=== PATIENT | female | born 1990 | race African-American/Black ===

== ENCOUNTER → 2018-06-23 | Emergency (ER) | payer SELFPAY ==
[~2018-06-23] VITALS: Ht 154.9 cm; Wt 73.5 kg
--- OUTSIDE RECORDS SUMMARY | 2018-06-28 13:05 | XMS REPORT | Summary of Care ---
Author Author [facility] Organization [facility] Address Unknown Phone Unavailable Encounter CHARANJIT Chavez(GISSELLE) [id number] Date(s): 11/28/15 - 11/28/15 [facility] [address] [place] [address]- Discharge Diagnosis: Dysuria Discharge Disposition: Home Attending Physician: Heriberto Barahona MD Vital Signs Most recent to 1 2 oldest [Reference Range]: Height 154.94 cm (11/28/15 8:09 PM) Temperature Oral 98.2 DegF [96.4-99.1 DegF] (11/28/15 8:09 PM) Blood Pressure 140/74 mmHg 130/59 mmHg [90-140/60-90 mmHg] (11/28/15 10:00 PM) (11/28/15 8:09 PM) Respiratory Rate 18 BRMIN 20 BRMIN [14-20 BRMIN] (11/28/15 10:00 PM) (11/28/15 8:09 PM) Peripheral Pulse 77 bpm 73 bpm Rate [60-100 bpm] (11/28/15 10:00 PM) (11/28/15 8:09 PM) Weight 79.545 kg (11/28/15 8:09 PM) Body Mass Index 33.13 m2 (11/28/15 8:09 PM) Problem List No data available for this section Allergies, Adverse Reactions, Alerts Substance Reaction Severity Status NKDA Active Medications Bactrim DS 800 mg- 160 mg oral tablet 1 tab, PO, BID, for UTI, X 3 day, # 6 tab, 0 Refill(s) Start Date: 11/28/15 Stop Date: 12/01/15 Status: Ordered Results URINE CHEM Most recent to 1 oldest [Reference Range]: U Preg [Negative] Negative (11/28/15 8:37 PM) URINE AND STOOL Most recent to 1 oldest [Reference Range]: UA Turbidity [Clear] Slight Cloudy (11/28/15 8:37 PM) UA Color [Yellow] Yellow *NA* (11/28/15 8:37 PM) UA pH [5.0-8.0] 6.0 (11/28/15 8:37 PM) UA Spec Grav 1.025 [<=1.030] (11/28/15 8:37 PM) UA Glucose [Negative Negative mg/dL mg/dL] (11/28/15 8:37 PM) UA Blood [Negative] Negative (11/28/15 8:37 PM) UA Ketones [Negative Negative mg/dL mg/dL] *NA* (11/28/15 8:37 PM) UA Protein [Negative Negative mg/dL mg/dL] (11/28/15 8:37 PM) UA Urobilinogen 0.2 EU/dL [0.1-1.0 EU/dL] (11/28/15 8:37 PM) UA Bili [Negative] Negative *NA* (11/28/15 8:37 PM) UA Leuk Est Negative [Negative] (11/28/15 8:37 PM) UA Nitrite Negative [Negative] (11/28/15 8:37 PM) UA WBC [None Seen] None Seen (11/28/15 8:37 PM) UA RBC [0-2 /HPF] 0-2 /HPF (11/28/15 8:37 PM) UA Bacteria [None Moderate /HPF Seen /HPF] (11/28/15 8:37 PM) UA Sq Epi [Few /LPF] Few /LPF (11/28/15 8:37 PM) Micro? Performed (11/28/15 8:37 PM) Immunizations No data available for this section Procedures Procedure Date Related Diagnosis Body Site Appendectomy section Social History Social History Type Response Smoking Status Never smoker; Ready to change: No; Concerns about tobacco use in household: No; Exposure to Tobacco Smoke None; Cigarette Smoking Last 365 Days No; Reg Smoking Cessation Counseling No Assessment and Plan No data available for this section
--- OUTSIDE RECORDS SUMMARY | 2018-06-28 13:05 | XMS REPORT | Summary of Care ---
Author Author [facility] Organization [facility] Address Unknown Phone Unavailable Encounter CHARANJIT Chavez(GISSELLE) [id number] Date(s): 06/18/15 - 06/18/15 [facility] [address] [place] [address]- [phone] Discharge Diagnosis: Exposure to STD Discharge Diagnosis: Trichomonas Discharge Disposition: Home Attending Physician: Ian Ferreira MD Vital Signs Most recent to 1 2 oldest [Reference Range]: Height 154.94 cm (06/18/15 11:55 AM) Most recent to 1 2 oldest [Reference Range]: Temperature Oral 98.2 DegF 98.5 DegF [96.4-99.1 DegF] (06/18/15 1:00 PM) (06/18/15 11:55 AM) Most recent to 1 2 oldest [Reference Range]: Blood Pressure 132/76 mmHg 128/70 mmHg [90-140/60-90 mmHg] (06/18/15 1:00 PM) (06/18/15 11:55 AM) Most recent to 1 2 oldest [Reference Range]: Respiratory Rate 18 BRMIN 18 BRMIN [14-20 BRMIN] (06/18/15 1:00 PM) (06/18/15 11:55 AM) Most recent to 1 2 oldest [Reference Range]: Peripheral Pulse 60 bpm 68 bpm Rate [60-100 bpm] (06/18/15 1:00 PM) (06/18/15 11:55 AM) Most recent to 1 2 oldest [Reference Range]: Weight 79.545 kg (06/18/15 11:55 AM) Most recent to 1 2 oldest [Reference Range]: Body Mass Index 33.13 m2 (06/18/15 11:55 AM) Problem List No data available for this section Allergies, Adverse Reactions, Alerts Substance Reaction Severity Status NKDA Active Medications Flagyl 2 gm, Route: PO, ONCE, Dosing Weight 79.545, kg, Start date: 06/18/15 12:54:00, Stop date: 06/18/15 12:54:00 Start Date: 06/18/15 Stop Date: 06/18/15 Status: Completed Rocephin 250 mg, Route: IM, Drug form: PDR/INJ, ONCE, Dosing Weight 79.545, kg, Priority: STAT, Start date: 06/18/15 12:54:00, Stop date: 06/18/15 12:54:00 Start Date: 06/18/15 Stop Date: 06/18/15 Status: Completed Zithromax 1,000 mg, Route: PO, Drug form: PCKT, ONCE, Dosing Weight 79.545, kg, Start date : 06/18/15 12:55:00, Stop date: 06/18/15 12:55:00 Start Date: 06/18/15 Stop Date: 06/18/15 Status: Discontinued Zithromax 250 mg oral tablet 1,000 mg, Route: PO, ONCE, Dosing Weight 79.545, kg, Start date: 06/18/15 13:20: 00, Stop date: 06/18/15 13:20:00 Start Date: 06/18/15 Stop Date: 06/18/15 Status: Completed Results URINE CHEM Most recent to 1 oldest [Reference Range]: U Preg [Negative] Negative (06/18/15 12:36 PM) URINE AND STOOL Most recent to 1 oldest [Reference Range]: UA Turbidity [Clear] Clear (06/18/15 12:36 PM) UA Color [Yellow] Yellow *NA* (06/18/15 12:36 PM) UA pH [5.0-8.0] 6.0 (06/18/15 12:36 PM) UA Spec Grav 1.015 [<=1.030] (06/18/15 12:36 PM) UA Glucose [Negative Negative mg/dL mg/dL] (06/18/15 12:36 PM) UA Blood [Negative] Negative (06/18/15 12:36 PM) UA Ketones [Negative Negative mg/dL mg/dL] *NA* (06/18/15 12:36 PM) UA Protein [Negative Negative mg/dL mg/dL] (06/18/15 12:36 PM) UA Urobilinogen 0.2 EU/dL [0.1-1.0 EU/dL] (06/18/15 12:36 PM) UA Bili [Negative] Negative *NA* (06/18/15 12:36 PM) UA Leuk Est Negative [Negative] (06/18/15 12:36 PM) UA Nitrite Negative [Negative] (06/18/15 12:36 PM) UA WBC [None Seen 0-2 /HPF /HPF] (06/18/15 12:36 PM) UA Bacteria [None Occasional /HPF Seen /HPF] (06/18/15 12:36 PM) UA Sq Epi [Few /LPF] Few /LPF (06/18/15 12:36 PM) UA Trichomonas [None Few /HPF Seen /HPF] *ABN* (06/18/15 12:36 PM) Immunizations No data available for this [...]
--- OUTSIDE RECORDS SUMMARY | 2018-06-28 13:05 | XMS REPORT | Summary of Care ---
Author Author [facility] Organization [facility] Address Unknown Phone Unavailable Encounter CHARANJIT Chavez(GISSELLE) [id number] Date(s): 02/18/17 - 02/18/17 [facility] [address] [employer] provided by [facility] [employer] [facility] [place] [address]- Discharge Diagnosis: Bacterial vaginitis Discharge Diagnosis: Nausea and vomiting during prior to 22 weeks gest ation Discharge Disposition: Home or Self Care Attending Physician: Serene Simons MD Vital Signs 1 2 3 Most recent to oldest [Reference Range]: 154.94 cm (02/18/17 12:01 PM) Height 98 DegF (02/18/17 5:39 PM) 98.3 DegF (02/18/17 12:01 PM) Temperature Oral [96.4-99.1 DegF] 112/59 mmHg (02/18/17 5:39 PM) 134/64 mmHg (02/18/17 3:33 PM) 119/70 mmHg (02/18/17 1:07 PM) Blood Pressure [90-140/60-90 mmHg] 18 BRMIN (02/18/17 5:39 PM) 18 BRMIN (02/18/17 3:33 PM) 18 BRMIN (02/18/17 1:07 PM) Respiratory Rate [14-20 BRMIN] 96 bpm (02/18/17 12:01 PM) Peripheral Pulse Rate [60-100 bpm] 72.727 kg (02/18/17 12:01 PM) Weight 30.29 m2 (02/18/17 12:01 PM) Body Mass Index Problem List No data available for this section Allergies, Adverse Reactions, Alerts Substance Reaction Severity Status NKDA Active Medications clindamycin 100 mg vaginal suppository 100 mg=1 supp, VAG, Bedtime, X 3 day, # 3 ea, 0 Refill(s) Start Date: 02/18/17 Stop Date: 02/21/17 Status: Ordered Sodium Chloride 0.9% (Bolus) IV 1,000 mL, Infuse Over: 1 hr, Route: IV, ONCE, Priority: STAT, Dosing Weight 72.7 27 kg, Start date: 02/18/17 15:20:00 CDT, Duration: 1 doses or times, Stop date: 02/18/17 15:20:00 CDT Start Date: 02/18/17 Stop Date: 02/18/17 Status: Completed Tylenol 500 mg, 1 tab, Route: PO, Drug form: TAB, ONCE, Dosing Weight 72.727, kg, Start date: 02/18/17 13:16:00 CDT, Stop date: 02/18/17 13:16:00 CDT Notes: Max acetaminophen 4000 mg/day (4 gm/day). (Same as: Tylenol Extra Streng th) Start Date: 02/18/17 Stop Date: 02/18/17 Status: Completed Zofran ODT 4 mg, 1 tab, Route: PO, Drug form: TABDIS, ONCE, Dosing Weight 72.727, kg, Prior ity: STAT, Start date: 02/18/17 13:16:00 CDT, Stop date: 02/18/17 13:16:00 CDT Notes: (Same as: Zofran ODT) Start Date: 02/18/17 Stop Date: 02/18/17 Status: Completed Zofran ODT 4 mg oral tablet, disintegrating 4 mg=1 tab, PO, Q8H, PRN Nausea & Vomiting, Dissolve tab under tongue, X 4 day, # 12 tab, 0 Refill(s) Start Date: 02/18/17 Stop Date: 02/22/17 Status: Ordered Results ELECTROLYTES Most recent to 1 oldest [Reference Range]: Sodium Lvl [135-145 135 mEq/L mEq/L] (02/18/17 3:15 PM) Potassium Lvl 3.7 mEq/L [3.5-5.1 mEq/L] (02/18/17 3:15 PM) Chloride Lvl [95-109 103 mEq/L mEq/L] (02/18/17 3:15 PM) CO2 [24-32 mEq/L] 19 mEq/L *LOW* (02/18/17 3:15 PM) AGAP [10.0-20.0 16.7 mEq/L mEq/L] (02/18/17 3:15 PM) CHEM PANEL Most recent to 1 oldest [Reference Range]: Creatinine Lvl 0.71 mg/dL [0.50-1.40 mg/dL] (02/18/17 3:15 PM) eGFR 138 mL/min/1.73m2 1 *NA* (02/18/17 3:15 PM) BUN [7-22 mg/dL] 5 mg/dL *LOW* (02/18/17 3:15 PM) Glucose Lvl [70-99 86 mg/dL mg/dL] (02/18/17 3:15 PM) Calcium Lvl 9.1 mg/dL [8.5-10.5 mg/dL] (02/18/17 3:15 PM) 1Result Comment: The eGFR is calculated using the CKD-EPI formula. In most young, healthy individuals the eGFR will be >90 mL/min/1.73m2. The eGFR declines with age. An eGFR of 60-89 may be normal in some populations, particularly the elderly, for whom the CKD-EPI formula has not been extensively validated. Use of the eGFR is not recommended in the following populations: Individuals with unstable creatinine concentrations, including patients and those with serious co-morbid conditions. Patients with extremes in muscle mass or diet. The data above are obtained from the National Kidney Disease Education Program ( NKDEP) which additionally recommends that when the eGFR is used in patients with extremes of body mass index for purposes of drug dosing, the eGFR should be mul tiplied by the estimated BMI. ENDOCRINOLOGY Most recent to 1 oldest [Reference Range]: S Preg [Negative] Positive *NA* (02/18/17 3:15 PM) URINE CHEM Most recent to 1 oldest [Reference Range]: U Preg [Negative] Positive *ABN* (02/18/17 1:25 PM) URINE AND STOOL Most recent to 1 oldest [Reference Range]: UA Turbidity [Clear] Slight Cloudy (02/18/17 1:25 PM) UA Color [Yellow] Yellow *NA* (02/18/17 1:25 PM) UA pH [5.0-8.0] 6.0 (02/18/17 1:25 PM) UA Spec Grav 1.033 [<=1.030] *NA* (02/18/17 1:25 PM) UA Glucose Negative [Negative] (02/18/17 1:25 PM) UA Blood [Negative] Negative (02/18/17 1:25 PM) UA Ketones [Negative >=80 mg/dL mg/dL] *ABN* (02/18/17 1:25 PM) UA Protein [Negative 30 mg/dL mg/dL] *ABN* (02/18/17 1:25 PM) UA Urobilinogen 0.2 EU/dL [0.1-1.0 EU/dL] (02/18/17 1:25 PM) UA Bili [Negative] Small *ABN* (02/18/17 1:25 PM) UA Leuk Est Negative [Negative] (02/18/17 1:25 PM) UA Nitrite Negative [Negative] (02/18/17 1:25 PM) UA WBC [None Seen 0-2 /HPF /HPF] (02/18/17 1:25 PM) UA RBC [0-2] None Seen (02/18/17 1:25 PM) UA Bacteria [None Few /HPF Seen /HPF] (02/18/17 1:25 PM) UA Sq Epi [Few /LPF] Many /LPF *ABN* (02/18/17 1:25 PM) Micro? Performed (02/18/17 1:25 PM) HEMATOLOGY Most recent to 1 oldest [Reference Range]: WBC [3.7-10.4 K/CMM] 12.3 K/CMM *HI* (02/18/17 3:15 PM) RBC [4.20-5.40 5.01 M/CMM M/CMM] (02/18/17 3:15 PM) Hgb [12.0-16.0 g/dL] 13.9 g/dL (02/18/17 3:15 PM) Hct [36.0-48.0 %] 42.5 % (02/18/17 3:15 PM) MCV [80.0-98.0 fL] 84.8 fL (02/18/17 3:15 PM) MCH [27.0-31.0 pg] 27.8 pg (02/18/17 3:15 PM) MCHC [32.0-36.0 32.8 g/dL g/dL] (02/18/17 3:15 PM) RDW [11.5-14.5 %] 12.9 % (02/18/17 3:15 PM) Platelet [133-450 131 K/CMM K/CMM] *LOW* (02/18/17 3:15 PM) MPV [7.4-10.4 fL] 9.9 fL (02/18/17 3:15 PM) Segs [45.0-75.0 %] 76.3 % *HI* (02/18/17 3:15 PM) Lymphocytes 17.2 % [20.0-40.0 %] *LOW* (02/18/17 3:15 PM) Monocytes [2.0-12.0 5.9 % %] (02/18/17 3:15 PM) Eosinophils [0.0-4.0 0.2 % %] (02/18/17 3:15 PM) Basophils [0.0-1.0 0.4 % %] (02/18/17 3:15 PM) Segs-Bands # 9.4 K/CMM [1.5-8.1 K/CMM] *HI* (02/18/17 3:15 PM) Lymphocytes # 2.1 K/CMM [1.0-5.5 K/CMM] (02/18/17 3:15 PM) Monocytes # [0.0-0.8 0.7 K/CMM K/CMM] (02/18/17 3:15 PM) Immunizations No data available for this section Procedures Procedure Date Related Diagnosis Body Site Appendectomy section Social History Social History Type Response Smoking Status Never smoker; Type: Cigarettes; Previous treatment: None; Ready to change: No; Concerns about tobacco use in household: No; Exposure to Tobacco Smoke None; Cigarette Smoking Last 365 Days No; Reg Smoking Cessation Counseling No Assessment and Plan No data available for this section
--- OUTSIDE RECORDS SUMMARY | 2018-06-28 13:05 | XMS REPORT | Summary of Care ---
Author Author [facility] Organization [facility] Address Unknown Phone Unavailable Encounter HQ Scott(FIN) [id number] Date(s): 12/12/17 - 12/13/17 [facility] [address] [place] [address]- [phone] Encounter Diagnosis Acute gastritis (Discharge Diagnosis) - 12/13/17 Acute gastritis without bleeding (Final) - 12/20/17 Discharge Disposition: Home or Self Care Attending Physician: Sammie Espino MD Vital Signs Most recent to 1 2 oldest [Reference Range]: Temperature Oral 98.0 DegF 97.9 DegF [96.4-99.1 DegF] (12/13/17 1:31 AM) (12/12/17 10:13 PM) Blood Pressure 124/80 mmHg 122/81 mmHg [90-140/60-90 mmHg] (12/13/17 1:31 AM) (12/12/17 10:13 PM) Respiratory Rate 18 BRMIN 18 BRMIN [14-20 BRMIN] (12/13/17 1:31 AM) (12/12/17 10:13 PM) Peripheral Pulse 62 bpm 66 bpm Rate [60-100 bpm] (12/13/17 1:31 AM) (12/12/17 10:13 PM) Weight 71.875 kg (12/12/17 10:13 PM) Problem List No data available for this section Allergies, Adverse Reactions, Alerts Substance Reaction Severity Status NKDA Active Medications Carafate 1 g oral tablet 1 gm=1 tab, PO, QID-Before Meals, # 40 tab, 0 Refill(s) Start Date: 12/13/17 Status: Ordered GI cocktail 30 mL, Route: PO, Drug Form: SUSP, Dosing Weight 71.875, kg, ONCE, STAT, Start d ate: 12/12/17 22:17:00 CDT, Stop date: 12/12/17 22:17:00 CDT Notes: G.I. Cocktail=antacid with simethicone 22.5 mL - lidocaine viscous 7.5 mL Start Date: 12/12/17 Stop Date: 12/12/17 Status: Completed ketOROLAC 30 mg, 1 mL, Route: IVP, Drug form: INJ, ONCE, Dosing Weight 71.875, kg, Priorit y: STAT, Start date: 12/13/17 0:28:00 CDT, Stop date: 12/13/17 0:28:00 CDT Notes: (Same as:Toradol) IV bolus must be given >15 seconds. Give IM administration slowly and deeply into the muscle.Not for use > 4 days MEDICATION WASTE Product Size: 30 mgProduct Wasted: ___ mg Start Date: 12/13/17 Stop Date: 12/13/17 Status: Completed Reglan 10 mg, 2 mL, Route: IVP, Drug form: INJ, ONCE, Dosing Weight 71.875, kg, Priorit y: STAT, Start date: 12/13/17 0:28:00 CDT, Stop date: 12/13/17 0:28:00 CDT Notes: (Same as: Reglan) Start Date: 12/13/17 Stop Date: 12/13/17 Status: Completed Reglan 10 mg oral tablet 10 mg=1 tab, PO, QID, X 7 day, # 28 tab, 0 Refill(s) Start Date: 12/13/17 Stop Date: 12/20/17 Status: Completed Results ELECTROLYTES Most recent to 1 oldest [Reference Range]: Sodium Lvl [135-145 139 mEq/L mEq/L] (12/12/17 10:41 PM) Potassium Lvl 3.4 mEq/L [3.5-5.1 mEq/L] *LOW* (12/12/17 10:41 PM) Chloride Lvl [95-109 108 mEq/L mEq/L] (12/12/17 10:41 PM) CO2 [24-32 mEq/L] 23 mEq/L *LOW* (12/12/17 10:41 PM) AGAP [10.0-20.0 11.4 mEq/L mEq/L] (12/12/17 10:41 PM) CHEM PANEL Most recent to 1 oldest [Reference Range]: Creatinine Lvl 0.87 mg/dL [0.50-1.40 mg/dL] (12/12/17 10:41 PM) eGFR 107 mL/min/1.73m2 1 *NA* (12/12/17 10:41 PM) BUN [7-22 mg/dL] 9 mg/dL (12/12/17 10:41 PM) B/C Ratio [6-25] 10 (12/12/17 10:41 PM) Glucose Lvl [70-99 96 mg/dL mg/dL] (12/12/17 10:41 PM) Total Protein 7.8 g/dL [6.4-8.4 g/dL] (12/12/17 10:41 PM) Albumin Lvl [3.5-5.0 3.6 g/dL g/dL] (12/12/17 10:41 PM) Globulin [2.7-4.2 4.2 g/dL g/dL] (12/12/17 10:41 PM) A/G Ratio [0.7-1.6] 0.9 (12/12/17 10:41 PM) Calcium Lvl 8.1 mg/dL [8.5-10.5 mg/dL] *LOW* (12/12/17 10:41 PM) ALT [0-65 unit/L] 15 unit/L (12/12/17 10:41 PM) AST [0-37 unit/L] 13 unit/L (12/12/17 10:41 PM) Alk Phos [39-136 70 unit/L unit/L] (12/12/17 10:41 PM) Bili Total [0.2-1.3 0.5 mg/dL mg/dL] (12/12/17 10:41 PM) Lipase Lvl [73-393 209 unit/L unit/L] (12/12/17 10:41 PM) 1Result Comment: The eGFR is calculated [...] 1 oldest [Reference Range]: S Preg [Negative] Negative *NA* (12/12/17 10:41 PM) URINE AND STOOL Most recent to 1 oldest [Reference Range]: UA Turbidity [Clear] Slight *ABN* (12/13/17 12:38 AM) UA Color [Yellow] Yellow *NA* (12/13/17 12:38 AM) UA pH [5.0-8.0] 5.0 (12/13/17 12:38 AM) UA Spec Grav 1.018 [<=1.030] (12/13/17 12:38 AM) UA Glucose [Negative Negative mg/dL mg/dL] *NA* (12/13/17 12:38 AM) UA Blood [Negative] Small *ABN* (12/13/17 12:38 AM) UA Ketones [Negative 20 mg/dL mg/dL] *ABN* (12/13/17 12:38 AM) UA Protein [Negative Negative mg/dL mg/dL] (12/13/17 12:38 AM) UA Urobilinogen <=1.0 mg/dL [0.1-1.0 mg/dL] *NA* (12/13/17 12:38 AM) UA Bili [Negative] Negative *NA* (12/13/17 12:38 AM) UA Leuk Est Negative [Negative] (12/13/17 12:38 AM) UA Nitrite Negative [Negative] (12/13/17 12:38 AM) UA WBC [0-5 /HPF] 1 /HPF (12/13/17 12:38 AM) UA RBC [0-2 /HPF] <1 /HPF (12/13/17 12:38 AM) UA Bacteria [None Occasional /HPF Seen /HPF] *NA* (12/13/17 12:38 AM) UA Sq Epi [Few /LPF] Few /LPF *NA* (12/13/17 12:38 AM) UA Mucus [None Seen Few /LPF /LPF] *NA* (12/13/17 12:38 AM) HEMATOLOGY Most recent to 1 oldest [Reference Range]: WBC [3.7-10.4 K/CMM] 9.0 K/CMM (12/12/17 10:41 PM) RBC [4.20-5.40 4.59 M/CMM M/CMM] (12/12/17 10:41 PM) Hgb [12.0-16.0 g/dL] 13.3 g/dL (12/12/17 10:41 PM) Hct [36.0-48.0 %] 39.8 % (12/12/17 10:41 PM) MCV [80.0-98.0 fL] 86.8 fL (12/12/17 10:41 PM) MCH [27.0-31.0 pg] 28.9 pg (12/12/17 10:41 PM) MCHC [32.0-36.0 33.4 g/dL g/dL] (12/12/17 10:41 PM) RDW [11.5-14.5 %] 12.8 % (12/12/17 10:41 PM) MPV [7.4-10.4 fL] 10.2 fL (12/12/17 10:41 PM) Platelet [133-450 146 K/CMM K/CMM] (12/12/17 10:41 PM) Segs [45.0-75.0 %] 55.8 % (12/12/17 10:41 PM) Lymphocytes 35.1 % [20.0-40.0 %] (12/12/17 10:41 PM) Monocytes [2.0-12.0 7.2 % %] (12/12/17 10:41 PM) Eosinophils [0.0-4.0 1.3 % %] (12/12/17 10:41 PM) Basophils [0.0-1.0 0.6 % %] (12/12/17 10:41 PM) Segs-Bands # 5.0 K/CMM [1.5-8.1 K/CMM] (12/12/17 10:41 PM) Lymphocytes # 3.2 K/CMM [1.0-5.5 K/CMM] (12/12/17 10:41 PM) Monocytes # [0.0-0.8 0.7 K/CMM K/CMM] (12/12/17 10:41 PM) Eosinophils # 0.1 K/CMM [0.0-0.5 K/CMM] (12/12/17 10:41 PM) Basophils # [0.0-0.2 0.1 K/CMM K/CMM] (12/12/17 10:41 PM) Immunizations No data available for this section Procedures Procedure Date Related Diagnosis Body Site Status Appendectomy Completed section Completed D&C - Dilatation and curettage Completed Social History Social History Type Response Substance Abuse Use: Current. Type: Marijuana. Recreational Drug Route: Inhaled. Frequency: 1-2 times per month. IV drug use: No. Drug use interferes with work/home: No. Ready to change: No. Household substance abuse concerns: No. Cessation Education Provided: No. Smoking Status Never smoker; Type: Cigarettes; Previous treatment: None; Ready to change: No; Concerns about tobacco use in household: No; Exposure to Tobacco Smoke None; Cigarette Smoking Last 365 Days No; Reg Smoking Cessation Counseling No entered on: 12/13/17 Assessment and Plan No data available for this section
--- OUTSIDE RECORDS SUMMARY | 2018-06-28 13:05 | XMS REPORT | Summary of Care ---
Author Author [facility] Organization [facility] Address Unknown Phone Unavailable Encounter CHARANJIT Chavez(GISSELLE) [id number] Date(s): 01/29/17 - 01/29/17 [facility] [address] [employer] provided by [facility] [employer] [facility] [place] [address]- Discharge Diagnosis: Abdominal pain, lower Discharge Disposition: Home or Self Care Attending Physician: Sung Mcclellan MD Vital Signs Most recent to 1 2 oldest [Reference Range]: Temperature Oral 97.9 DegF 98.6 DegF [96.4-99.1 DegF] (01/29/17 1:19 PM) (01/29/17 11:27 AM) Blood Pressure 128/8 mmHg 123/74 mmHg [90-140/60-90 mmHg] (01/29/17 1:19 PM) (01/29/17 11:27 AM) Respiratory Rate 18 BRMIN 15 BRMIN [14-20 BRMIN] (01/29/17 1:19 PM) (01/29/17 11:27 AM) Peripheral Pulse 72 bpm 70 bpm Rate [60-100 bpm] (01/29/17 1:19 PM) (01/29/17 11:27 AM) Problem List No data available for this section Allergies, Adverse Reactions, Alerts Substance Reaction Severity Status NKDA Active Medications Zofran ODT 4 mg, Route: PO, Drug form: TABDIS, ONCE, Dosing Weight 85.909, kg, Priority: ST AT, Start date: 01/29/17 12:29:00 CDT, Stop date: 01/29/17 12:29:00 CDT Start Date: 01/29/17 Stop Date: 01/29/17 Status: Completed Results URINE CHEM Most recent to 1 oldest [Reference Range]: U Preg [Negative] Negative (01/29/17 11:56 AM) URINE AND STOOL Most recent to 1 oldest [Reference Range]: UA Turbidity [Clear] Turbid *ABN* (01/29/17 11:56 AM) UA Color [Yellow] Yellow *NA* (01/29/17 11:56 AM) UA pH [5.0-8.0] 6.0 (01/29/17 11:56 AM) UA Spec Grav 1.024 [<=1.030] *NA* (01/29/17 11:56 AM) UA Glucose Negative [Negative] (01/29/17 11:56 AM) UA Blood [Negative] Negative (01/29/17 11:56 AM) UA Ketones Negative [Negative] *NA* (01/29/17 11:56 AM) UA Protein Negative [Negative] (01/29/17 11:56 AM) UA Urobilinogen 0.2 EU/dL [0.1-1.0 EU/dL] (01/29/17 11:56 AM) UA Bili [Negative] Negative *NA* (01/29/17 11:56 AM) UA Leuk Est Negative [Negative] (01/29/17 11:56 AM) UA Nitrite Negative [Negative] (01/29/17 11:56 AM) UA WBC [None Seen] None Seen (01/29/17 11:56 AM) UA RBC [0-2] None Seen (01/29/17 11:56 AM) UA Bacteria [None None Seen Seen] (01/29/17 11:56 AM) UA Sq Epi [Few /LPF] Occasional /LPF (01/29/17 11:56 AM) UA Amorph Yeni [None Moderate /HPF Seen /HPF] *ABN* (01/29/17 11:56 AM) Micro? Performed (01/29/17 11:56 AM) Immunizations No data available for this section [...]
--- OUTSIDE RECORDS SUMMARY | 2018-06-28 13:05 | XMS REPORT | Summary of Care ---
Author Author [facility] Organization [facility] Address Unknown Phone Unavailable Encounter HQ Scott(FIN) [phone] Date(s): 10/14/17 - 10/14/17 [facility] [address] Professional Services provided by [employer] [facility] [employer] [place] [address]- Encounter Diagnosis Epigastric abdominal pain (Discharge Diagnosis) - 10/14/17 Diarrhea (Discharge Diagnosis) - 10/14/17 Epigastric pain (Final) - 10/19/17 Diarrhea, unspecified (Final) - Discharge Disposition: Home or Self Care Attending Physician: Tanner Chowdhury MD Vital Signs Most recent to 1 2 oldest [Reference Range]: Temperature Oral 98.7 DegF 97.9 DegF [96.4-99.1 DegF] (10/14/17 4:56 PM) (10/14/17 1:43 PM) Blood Pressure 112/74 mmHg 135/82 mmHg [90-140/60-90 mmHg] (10/14/17 4:56 PM) (10/14/17 1:43 PM) Respiratory Rate 16 BRMIN 16 BRMIN [14-20 BRMIN] (10/14/17 4:56 PM) (10/14/17 1:43 PM) Peripheral Pulse 84 bpm 60 bpm Rate [60-100 bpm] (10/14/17 4:56 PM) (10/14/17 1:43 PM) Problem List No data available for this section Allergies, Adverse Reactions, Alerts Substance Reaction Severity Status NKDA Active Medications Bentyl 20 mg, 1 tab, Route: PO, Drug form: TAB, ONCE, Dosing Weight 70.455, kg, Start d ate: 10/14/17 14:52:00 BIOPSYCHOLOGIST, Stop date: 10/14/17 14:52:00 BIOPSYCHOLOGIST Notes: (Same as: Bentyl) Start Date: 10/14/17 Stop Date: 10/14/17 Status: Completed Bentyl 20 mg oral tablet 20 mg=1 tab, PO, QID, PRN Abdominal Pain, As needed for abdominal pain every 6 h ours., # 60 tab, 0 Refill(s) Start Date: 10/14/17 Status: Ordered GI cocktail 30 mL, Route: PO, Drug Form: SUSP, Dosing Weight 70.455, kg, ONCE, STAT, Start d ate: 10/14/17 14:52:00 BIOPSYCHOLOGIST, Stop date: 10/14/17 14:52:00 BIOPSYCHOLOGIST Notes: G.I. Cocktail=antacid with simethicone 22.5 mL - lidocaine viscous 7.5 mL Start Date: 10/14/17 Stop Date: 10/14/17 Status: Completed omeprazole 20 mg oral delayed release capsule 20 mg=1 cap, PO, Daily, # 30 cap, 0 Refill(s) Start Date: 10/14/17 Stop Date: 11/13/17 Status: Ordered Results ELECTROLYTES Most recent to 1 oldest [Reference Range]: Sodium Lvl [135-145 139 mEq/L mEq/L] (10/14/17 3:00 PM) Potassium Lvl 4.1 mEq/L [3.5-5.1 mEq/L] (10/14/17 3:00 PM) Chloride Lvl [95-109 106 mEq/L mEq/L] (10/14/17 3:00 PM) CO2 [24-32 mEq/L] 22 mEq/L *LOW* (10/14/17 3:00 PM) AGAP [10.0-20.0 15.1 mEq/L mEq/L] (10/14/17 3:00 PM) CHEM PANEL Most recent to 1 oldest [Reference Range]: Creatinine Lvl 0.83 mg/dL [0.50-1.40 mg/dL] (10/14/17 3:00 PM) eGFR 113 mL/min/1.73m2 1 *NA* (10/14/17 3:00 PM) BUN [7-22 mg/dL] 11 mg/dL (10/14/17 3:00 PM) B/C Ratio [6-25] 13 (10/14/17 3:00 PM) Glucose Lvl [70-99 82 mg/dL mg/dL] (10/14/17 3:00 PM) Total Protein 7.8 g/dL [6.4-8.4 g/dL] (10/14/17 3:00 PM) Albumin Lvl [3.5-5.0 3.8 g/dL g/dL] (10/14/17 3:00 PM) Globulin [2.7-4.2 4.0 g/dL g/dL] (10/14/17 3:00 PM) A/G Ratio [0.7-1.6] 1.0 (10/14/17 3:00 PM) Calcium Lvl 8.9 mg/dL [8.5-10.5 mg/dL] (10/14/17 3:00 PM) ALT [0-65 unit/L] 15 unit/L (10/14/17 3:00 PM) AST [0-37 unit/L] 19 unit/L (10/14/17 3:00 PM) Alk Phos [39-136 68 unit/L unit/L] (10/14/17 3:00 PM) Bili Total [0.2-1.3 0.5 mg/dL mg/dL] (10/14/17 3:00 PM) Lipase Lvl [73-393 267 unit/L unit/L] (10/14/17 3:00 PM) 1Result Comment: The eGFR is calculated [...] be mul tiplied by the estimated BMI. URINE CHEM Most recent to 1 oldest [Reference Range]: U Preg [Negative] Negative (10/14/17 3:39 PM) URINE AND STOOL Most recent to 1 oldest [Reference Range]: UA Turbidity [Clear] Clear (10/14/17 3:39 PM) UA Color [Yellow] Yellow *NA* (10/14/17 3:39 PM) UA pH [5.0-8.0] 6.0 (10/14/17 3:39 PM) UA Spec Grav >=1.030 [<=1.030] *ABN* (10/14/17 3:39 PM) UA Glucose Negative [Negative] (10/14/17 3:39 PM) UA Blood [Negative] Large *ABN* (10/14/17 3:39 PM) UA Ketones Trace [Negative] *ABN* (10/14/17 3:39 PM) UA Protein Negative [Negative] (10/14/17 3:39 PM) UA Urobilinogen 0.2 EU/dL [0.1-1.0 EU/dL] (10/14/17 3:39 PM) UA Bili [Negative] Negative *NA* (10/14/17 3:39 PM) UA Leuk Est Negative [Negative] (10/14/17 3:39 PM) UA Nitrite Negative [Negative] (10/14/17 3:39 PM) UA WBC [None Seen 0-2 /HPF /HPF] (10/14/17 3:39 PM) UA RBC [0-2 /HPF] 3-5 /HPF *ABN* (10/14/17 3:39 PM) UA Bacteria [None Occasional /HPF Seen /HPF] (10/14/17 3:39 PM) UA Sq Epi [Few /LPF] Few /LPF (10/14/17 3:39 PM) UA Mucus [None Seen Few /LPF /LPF] (10/14/17 3:39 PM) Micro? Performed (10/14/17 3:39 PM) HEMATOLOGY Most recent to 1 oldest [Reference Range]: WBC [3.7-10.4 K/CMM] 11.1 K/CMM *HI* (10/14/17 3:00 PM) RBC [4.20-5.40 4.53 M/CMM M/CMM] (10/14/17 3:00 PM) Hgb [12.0-16.0 g/dL] 12.8 g/dL (10/14/17 3:00 PM) Hct [36.0-48.0 %] 39.2 % (10/14/17 3:00 PM) MCV [80.0-98.0 fL] 86.4 fL (10/14/17 3:00 PM) MCH [27.0-31.0 pg] 28.1 pg (10/14/17 3:00 PM) MCHC [32.0-36.0 32.6 g/dL g/dL] (10/14/17 3:00 PM) RDW [11.5-14.5 %] 13.6 % (10/14/17 3:00 PM) MPV [7.4-10.4 fL] 9.7 fL (10/14/17 3:00 PM) Platelet [133-450 157 K/CMM K/CMM] (10/14/17 3:00 PM) Segs [45.0-75.0 %] 68.4 % (10/14/17 3:00 PM) Lymphocytes 24.2 % [20.0-40.0 %] (10/14/17 3:00 PM) Monocytes [2.0-12.0 6.2 % %] (10/14/17 3:00 PM) Eosinophils [0.0-4.0 0.8 % %] (10/14/17 3:00 PM) Basophils [0.0-1.0 0.4 % %] (10/14/17 3:00 PM) Segs-Bands # 7.6 K/CMM [1.5-8.1 K/CMM] (10/14/17 3:00 PM) Lymphocytes # 2.7 K/CMM [1.0-5.5 K/CMM] (10/14/17 3:00 PM) Monocytes # [0.0-0.8 0.7 K/CMM K/CMM] (10/14/17 3:00 PM) Eosinophils # 0.1 K/CMM [0.0-0.5 K/CMM] (10/14/17 3:00 PM) Immunizations No data available for this [...]
--- OUTSIDE RECORDS SUMMARY | 2018-06-28 13:05 | XMS REPORT | Summary of Care ---
Author Author [facility] Organization [facility] Address Unknown Phone Unavailable Encounter CHARANJIT Chavez(GISSELLE) [id number] Date(s): 10/06/16 - 10/06/16 [facility] [address] [place] [address]- [phone] Discharge Diagnosis: Pain, chronic Discharge Disposition: Home or Self Care Attending Physician: Ian Ferreira MD Vital Signs Most recent to 1 2 oldest [Reference Range]: Height 157.48 cm (10/06/16 8:40 PM) Temperature Oral 98.2 DegF 98.0 DegF [96.4-99.1 DegF] (10/06/16 9:53 PM) (10/06/16 8:40 PM) Blood Pressure 118/71 mmHg 124/75 mmHg [90-140/60-90 mmHg] (10/06/16 9:53 PM) (10/06/16 8:40 PM) Respiratory Rate 18 BRMIN 18 BRMIN [14-20 BRMIN] (10/06/16 9:53 PM) (10/06/16 8:40 PM) Peripheral Pulse 68 bpm 69 bpm Rate [60-100 bpm] (10/06/16 9:53 PM) (10/06/16 8:40 PM) Weight 85.909 kg (10/06/16 8:40 PM) Body Mass Index 34.64 m2 (10/06/16 8:40 PM) Problem List No data available for this section Allergies, Adverse Reactions, Alerts Substance Reaction Severity Status NKDA Active Medications No data available for this section Results URINE CHEM Most recent to 1 oldest [Reference Range]: U Preg [Negative] Negative (10/06/16 9:08 PM) URINE AND STOOL Most recent to 1 oldest [Reference Range]: UA Turbidity [Clear] Clear (10/06/16 9:08 PM) UA Color [Yellow] Yellow *NA* (10/06/16 9:08 PM) UA pH [5.0-8.0] 6.5 (10/06/16 9:08 PM) UA Spec Grav 1.020 [<=1.030] (10/06/16 9:08 PM) UA Glucose [Negative Negative mg/dL mg/dL] (10/06/16 9:08 PM) UA Blood [Negative] Negative (10/06/16 9:08 PM) UA Ketones [Negative Negative mg/dL mg/dL] *NA* (10/06/16 9:08 PM) UA Protein [Negative Negative mg/dL mg/dL] (10/06/16 9:08 PM) UA Urobilinogen 0.2 EU/dL [0.1-1.0 EU/dL] (10/06/16 9:08 PM) UA Bili [Negative] Negative *NA* (10/06/16 9:08 PM) UA Leuk Est Negative [Negative] (10/06/16 9:08 PM) UA Nitrite Negative [Negative] (10/06/16 9:08 PM) UA WBC [None Seen 0-2 /HPF /HPF] (10/06/16 9:08 PM) UA RBC [0-2] None Seen (10/06/16 9:08 PM) UA Bacteria [None None Seen Seen] (10/06/16 9:08 PM) UA Sq Epi [Few /LPF] Few /LPF (10/06/16 9:08 PM) Immunizations No data available for this [...]
--- OUTSIDE RECORDS SUMMARY | 2018-06-28 13:05 | XMS REPORT | Summary of Care ---
Author Author [facility] Organization [facility] Address Unknown Phone Unavailable Encounter CHARANJIT Chavez(GISESLLE) [id number] Date(s): 12/08/15 - 12/08/15 [facility] [address] [place] [address]- Discharge Diagnosis: Vomiting Discharge Diagnosis: Viral infection Discharge Disposition: Home Attending Physician: Cris Martinez DO Vital Signs Most recent to 1 2 oldest [Reference Range]: Temperature Oral 98.5 DegF 98.3 DegF [96.4-99.1 DegF] (12/08/15 10:58 PM) (12/08/15 8:23 PM) Blood Pressure 117/67 mmHg 123/108 mmHg [90-140/60-90 mmHg] (12/08/15 10:58 PM) (12/08/15 8:23 PM) Respiratory Rate 18 BRMIN 20 BRMIN [14-20 BRMIN] (12/08/15 10:58 PM) (12/08/15 8:23 PM) Peripheral Pulse 99 bpm 122 bpm Rate [60-100 bpm] (12/08/15 10:58 PM) *HI* (12/08/15 8:23 PM) Weight 81.818 kg (12/08/15 8:23 PM) Problem List No data available for this section Allergies, Adverse Reactions, Alerts Substance Reaction Severity Status NKDA Active Medications ondansetron 4 mg, Route: IVP, Drug form: INJ, ONCE, Dosing Weight 81.818, kg, Priority: STAT , Start date: 12/08/15 21:12:00, Stop date: 12/08/15 21:12:00 Start Date: 12/08/15 Stop Date: 12/08/15 Status: Completed Sodium Chloride 0.9% (Bolus) IV 1,000 mL, 1,000 ml/hr, Infuse Over: 1 hr, Route: IV, ONCE, Priority: Michelle FELTON Weight 81.818 kg, Start date: 12/08/15 21:12:00, Duration: 1 doses or times, S top date: 12/08/15 21:12:00 Start Date: 12/08/15 Stop Date: 12/08/15 Status: Completed Tylenol 325 mg oral tablet 650 mg=2 tab, PO, Q4H, PRN Fever, X 3 day, # 36 tab, 0 Refill(s) Start Date: 12/08/15 Stop Date: 12/11/15 Status: Ordered Zofran ODT 4 mg oral tablet, disintegrating 4 mg=1 tab, PO, Q4H, PRN as needed for nausea/vomiting, Dissolve tab under tongu e, X 2 day, # 12 tab, 0 Refill(s) Start Date: 12/08/15 Stop Date: 12/10/15 Status: Ordered Results ELECTROLYTES Most recent to 1 oldest [Reference Range]: Sodium Lvl [135-145 139 mEq/L mEq/L] (12/08/15 9:30 PM) Potassium Lvl 3.8 mEq/L [3.5-5.1 mEq/L] (12/08/15 9:30 PM) Chloride Lvl [95-109 105 mEq/L mEq/L] (12/08/15 9:30 PM) CO2 [24-32 mEq/L] 24 mEq/L (12/08/15 9:30 PM) AGAP [10.0-20.0 13.8 mEq/L mEq/L] (12/08/15 9:30 PM) CHEM PANEL Most recent to 1 oldest [Reference Range]: Creatinine Lvl 0.99 mg/dL [0.50-1.40 mg/dL] (12/08/15 9:30 PM) eGFR 93 mL/min/1.73m2 1 *NA* (12/08/15 9:30 PM) BUN [7-22 mg/dL] 11 mg/dL (12/08/15 9:30 PM) B/C Ratio [6-25] 11 (12/08/15 9:30 PM) Glucose Lvl [70-99 96 mg/dL mg/dL] (12/08/15 9:30 PM) Total Protein 8.4 g/dL [6.4-8.4 g/dL] (12/08/15 9:30 PM) Albumin Lvl [3.5-5.0 3.8 g/dL g/dL] (12/08/15 9:30 PM) Globulin [2.0-4.0 4.6 g/dL g/dL] *HI* (12/08/15 9:30 PM) A/G Ratio [0.7-1.6] 0.8 (12/08/15 9:30 PM) Calcium Lvl 8.9 mg/dL [8.5-10.5 mg/dL] (12/08/15 9:30 PM) ALT [0-65 unit/L] 14 unit/L (12/08/15 9:30 PM) AST [0-37 unit/L] 14 unit/L (12/08/15 9:30 PM) Alk Phos [39-136 98 unit/L unit/L] (12/08/15 9:30 PM) Bili Total [0.2-1.3 0.5 mg/dL mg/dL] (12/08/15 9:30 PM) Lipase Lvl [73-393 179 unit/L unit/L] (12/08/15 9:30 PM) 1Result Comment: The eGFR is calculated [...] oldest [Reference Range]: U Preg [Negative] Negative (12/08/15 9:39 PM) URINE AND STOOL Most recent to 1 oldest [Reference Range]: UA Turbidity [Clear] Clear (12/08/15 9:30 PM) UA Color [Yellow] Yellow *NA* (12/08/15 9:30 PM) UA pH [5.0-8.0] 8.5 *HI* (12/08/15 9:30 PM) UA Spec Grav 1.020 [<=1.030] (12/08/15 9:30 PM) UA Glucose Negative [Negative] (12/08/15 9:30 PM) UA Blood [Negative] Negative (12/08/15 9:30 PM) UA Ketones [Negative 15 mg/dL mg/dL] *ABN* (12/08/15 9:30 PM) UA Protein Negative [Negative] (12/08/15 9:30 PM) UA Urobilinogen 0.2 EU/dL [0.1-1.0 EU/dL] (12/08/15 9:30 PM) UA Bili [Negative] Negative *NA* (12/08/15 9:30 PM) UA Leuk Est Negative [Negative] (12/08/15 9:30 PM) UA Nitrite Negative [Negative] (12/08/15 9:30 PM) UA WBC [None Seen 0-2 /HPF /HPF] (12/08/15 9:30 PM) UA RBC [0-2 /HPF] 0-2 /HPF (12/08/15 9:30 PM) UA Bacteria [None Few /HPF Seen /HPF] (12/08/15 9:30 PM) UA Sq Epi [Few /LPF] Few /LPF (12/08/15 9:30 PM) HEMATOLOGY Most recent to 1 oldest [Reference Range]: WBC [3.7-10.4 K/CMM] 12.6 K/CMM *HI* (12/08/15 9:30 PM) RBC [4.20-5.40 4.83 M/CMM M/CMM] (12/08/15 9:30 PM) Hgb [12.0-16.0 g/dL] 13.1 g/dL (12/08/15 9:30 PM) Hct [36.0-48.0 %] 40.4 % (12/08/15 9:30 PM) MCV [80.0-98.0 fL] 83.6 fL (12/08/15 9:30 PM) MCH [27.0-31.0 pg] 27.1 pg (12/08/15 9:30 PM) MCHC [32.0-36.0 32.4 g/dL g/dL] (12/08/15 9:30 PM) RDW [11.5-14.5 %] 13.5 % (12/08/15 9:30 PM) Platelet [133-450 135 K/CMM K/CMM] (12/08/15 9:30 PM) MPV [7.4-10.4 fL] 10.0 fL (12/08/15 9:30 PM) Segs [45.0-75.0 %] 89.6 % *HI* (12/08/15 9:30 PM) Lymphocytes 3.6 % [20.0-40.0 %] *LOW* (12/08/15 9:30 PM) Monocytes [2.0-12.0 6.4 % %] (12/08/15 9:30 PM) Eosinophils [0.0-4.0 0.1 % %] (12/08/15 9:30 PM) Basophils [0.0-1.0 0.3 % %] (12/08/15 9:30 PM) Segs-Bands # 11.4 K/CMM [1.5-8.1 K/CMM] *HI* (12/08/15 9:30 PM) Lymphocytes # 0.5 K/CMM [1.0-5.5 K/CMM] *LOW* (12/08/15 9:30 PM) Monocytes # [0.0-0.8 0.8 K/CMM K/CMM] (12/08/15 9:30 PM) RBC Morph Normal (12/08/15 9:30 PM) Large Plt Slight *NA* (12/08/15 9:30 PM) VIRAL - SEROLOGY Most recent to 1 oldest [Reference Range]: Influ A [Negative] Negative (12/08/15 10:07 PM) Influ B [Negative] Negative (12/08/15 10:07 PM) Immunizations No data available for this [...]
--- OUTSIDE RECORDS SUMMARY | 2018-06-28 13:05 | XMS REPORT | Summary of Care ---
Author Author [facility] Organization [facility] Address Unknown Phone Unavailable Encounter HQ Scott(GISSELLE) [id number] Date(s): 11/27/17 - 11/27/17 [facility] [address] [employer] provided by [facility] [employer] [facility] [place] [address]- Encounter Diagnosis Nausea and vomiting (Discharge Diagnosis) - 11/27/17 Abdominal pain in female (Discharge Diagnosis) - 11/27/17 Epigastric pain (Final) - 12/02/17 Nausea with vomiting, unspecified (Final) - Discharge Disposition: Home or Self Care Attending Physician: Jeremy Mejia DO Vital Signs 1 2 3 Most recent to oldest [Reference Range]: 98.6 DegF (11/27/17 4:30 PM) 98.6 DegF (11/27/17 3:09 PM) 98.5 DegF (11/27/17 11:22 AM) Temperature Oral [96.4-99.1 DegF] 126/76 mmHg (11/27/17 4:30 PM) 108/58 mmHg (11/27/17 3:09 PM) 119/56 mmHg (11/27/17 2:00 PM) Blood Pressure [90-140/60-90 mmHg] 18 BRMIN (11/27/17 4:30 PM) 20 BRMIN (11/27/17 3:09 PM) 18 BRMIN (11/27/17 2:00 PM) Respiratory Rate [14-20 BRMIN] 61 bpm (11/27/17 11:22 AM) Peripheral Pulse Rate [60-100 bpm] Problem List No data available for this section Allergies, Adverse Reactions, Alerts Substance Reaction Severity Status NKDA Active Medications Bentyl 20 mg, 1 tab, Route: PO, Drug form: TAB, ONCE, Dosing Weight 70.455, kg, Start d ate: 11/27/17 12:15:00 CDT, Stop date: 11/27/17 12:15:00 CDT Notes: (Same as: Bentyl) Start Date: 11/27/17 Stop Date: 11/27/17 Status: Completed GI cocktail 30 mL, Route: PO, Drug Form: SUSP, Dosing Weight 70.455, kg, ONCE, STAT, Start d ate: 11/27/17 12:15:00 CDT, Stop date: 11/27/17 12:15:00 CDT Notes: G.I. Cocktail=antacid with simethicone 22.5 mL - lidocaine viscous 7.5 mL Start Date: 11/27/17 Stop Date: 11/27/17 Status: Completed Haldol 1 mg, 0.2 mL, Route: IV, Drug form: INJ, ONCE, Dosing Weight 70.455, kg, Priorit y: STAT, Start date: 11/27/17 15:00:00 CDT, Stop date: 11/27/17 15:00:00 CDT Notes: (Same as: Haldol) Start Date: 11/27/17 Stop Date: 11/27/17 Status: Completed Haldol 1 mg, 0.2 mL, Route: IV, Drug form: INJ, ONCE, Dosing Weight 70.455, kg, Priorit y: STAT, Start date: 11/27/17 13:52:00 CDT, Stop date: 11/27/17 13:52:00 CDT Start Date: 11/27/17 Stop Date: 11/27/17 Status: Completed ondansetron 4 mg, 2 mL, Route: IVP, Drug form: INJ, ONCE, Dosing Weight 70.455, kg, Priority : STAT, Start date: 11/27/17 12:14:00 CDT, Stop date: 11/27/17 12:14:00 CDT Notes: (Same as: Khadra) MEDICATION WASTE Product Size: 4 mgProduct Was blanquita: ___ mg Start Date: 11/27/17 Stop Date: 11/27/17 Status: Completed Sodium Chloride 0.9% (Bolus) IV 1,000 mL, 1000 ml/hr, Infuse Over: 1 hr, Route: IV, 1,000, Drug form: INJ, ONCE, Priority: STAT, Dosing Weight 70.455 kg, Start date: 11/27/17 12:14:00 CDT, Stop date: 11/27/17 12:14:00 CDT Start Date: 11/27/17 Stop Date: 11/27/17 Status: Completed Zofran 4 mg oral tablet 4 mg=1 tab, PO, TID, # 9 tab, 0 Refill(s) Start Date: 11/27/17 Stop Date: 11/30/17 Status: Ordered Results ELECTROLYTES Most recent to 1 oldest [Reference Range]: Sodium Lvl [135-145 136 mEq/L mEq/L] (11/27/17 12:18 PM) Potassium Lvl 4.4 mEq/L 1 [3.5-5.1 mEq/L] (11/27/17 12:18 PM) Chloride Lvl [95-109 105 mEq/L mEq/L] (11/27/17 12:18 PM) CO2 [24-32 mEq/L] 20 mEq/L *LOW* (11/27/17 12:18 PM) AGAP [10.0-20.0 15.4 mEq/L mEq/L] (11/27/17 12:18 PM) 1Result Comment: Specimen Slightly Hemolyzed. CHEM PANEL Most recent to 1 oldest [Reference Range]: Creatinine Lvl 0.77 mg/dL [0.50-1.40 mg/dL] (11/27/17 12:18 PM) eGFR 124 mL/min/1.73m2 1 *NA* (11/27/17 12:18 PM) BUN [7-22 mg/dL] 9 mg/dL (11/27/17 12:18 PM) Glucose Lvl [70-99 93 mg/dL mg/dL] (11/27/17 12:18 PM) Total Protein 7.6 g/dL [6.4-8.4 g/dL] (11/27/17 12:18 PM) Albumin Lvl [3.5-5.0 3.5 g/dL g/dL] (11/27/17 12:18 PM) Globulin [2.7-4.2 4.1 g/dL g/dL] (11/27/17 12:18 PM) A/G Ratio [0.7-1.6] 0.9 (11/27/17 12:18 PM) Calcium Lvl 8.8 mg/dL [8.5-10.5 mg/dL] (11/27/17:18 PM) Magnesium Lvl 1.5 mg/dL [1.8-2.4 mg/dL] *LOW* (11/27/17:18 PM) ALT [0-65 unit/L] 11 unit/L (11/27/17:18 PM) AST [0-37 unit/L] 21 unit/L (11/27/17:18 PM) Alk Phos [39-136 81 unit/L unit/L] (11/27/17:18 PM) Bili Total [0.2-1.3 0.3 mg/dL mg/dL] (11/27/17:18 PM) Bili Direct [0.0-0.3 <0.1 mg/dL mg/dL] (11/27/17:18 PM) Bili Indirect UNABLE TO CALCULATE [0.0-1.0] *NA* (11/27/17:18 PM) Lipase Lvl [73-393 226 unit/L unit/L] (11/27/17:18 PM) 1Result Comment: The eGFR is calculated [...] oldest [Reference Range]: U Preg [Negative] Negative (11/27/17 12:18 PM) URINE AND STOOL Most recent to 1 oldest [Reference Range]: UA Turbidity [Clear] Slight Cloudy (3/17/18 12:18 PM) UA Color [Yellow] Yellow *NA* (11/27/17 12:18 PM) UA pH [5.0-8.0] 6.0 (11/27/17 12:18 PM) UA Spec Grav >=1.030 [<=1.030] *ABN* (11/27/17 12:18 PM) UA Glucose Negative [Negative] (11/27/17 12:18 PM) UA Blood [Negative] Trace *ABN* (11/27/17:18 PM) UA Ketones Negative [Negative] *NA* (11/27/17:18 PM) UA Protein Negative [Negative] (11/27/17 12:18 PM) UA Urobilinogen 0.2 EU/dL [0.1-1.0 EU/dL] (11/27/17:18 PM) UA Bili [Negative] Negative *NA* (11/27/17 12:18 PM) UA Leuk Est Negative [Negative] (11/27/17:18 PM) UA Nitrite Negative [Negative] (11/27/17 12:18 PM) UA WBC [None Seen 0-2 /HPF /HPF] (11/27/17 12:18 PM) UA RBC [0-2 /HPF] 0-2 /HPF (11/27/17 12:18 PM) UA Bacteria [None Occasional /HPF Seen /HPF] (11/27/17 12:18 PM) UA Sq Epi [Few /LPF] Few /LPF (11/27/17 12:18 PM) UA Mucus [None Seen Few /LPF /LPF] (11/27/17:18 PM) HEMATOLOGY Most recent to 1 oldest [Reference Range]: WBC [3.7-10.4 K/CMM] 10.1 K/CMM (11/27/17 12:18 PM) RBC [4.20-5.40 4.61 M/CMM M/CMM] (11/27/17 12:18 PM) Hgb [12.0-16.0 g/dL] 13.3 g/dL (11/27/17 12:18 PM) Hct [36.0-48.0 %] 40.8 % (11/27/17 12:18 PM) MCV [80.0-98.0 fL] 88.5 fL (11/27/17 12:18 PM) MCH [27.0-31.0 pg] 28.8 pg (11/27/17:18 PM) MCHC [32.0-36.0 32.5 g/dL g/dL] (11/27/17 12:18 PM) RDW [11.5-14.5 %] 12.8 % (11/27/17:18 PM) MPV [7.4-10.4 fL] 10.3 fL (11/27/17:18 PM) Platelet [133-450 115 K/CMM K/CMM] *LOW* (11/27/17:18 PM) Segs [45.0-75.0 %] 75.5 % *HI* (11/27/17:18 PM) Lymphocytes 16.1 % [20.0-40.0 %] *LOW* (11/27/17:18 PM) Monocytes [2.0-12.0 7.0 % %] (11/27/17 12:18 PM) Eosinophils [0.0-4.0 0.9 % %] (11/27/17 12:18 PM) Basophils [0.0-1.0 0.5 % %] (11/27/17:18 PM) Segs-Bands # 7.6 K/CMM [1.5-8.1 K/CMM] (11/27/17 12:18 PM) Lymphocytes # 1.6 K/CMM [1.0-5.5 K/CMM] (11/27/17 12:18 PM) Monocytes # [0.0-0.8 0.7 K/CMM K/CMM] (11/27/17 12:18 PM) Eosinophils # 0.1 K/CMM [0.0-0.5 K/CMM] (11/27/17 12:18 PM) Immunizations No data available for this [...]
--- OUTSIDE RECORDS SUMMARY | 2018-06-28 13:05 | XMS REPORT | Summary of Care ---
Author Author [facility] Organization [facility] Address Unknown Phone Unavailable Encounter CHARANJIT Chavez(GISSELLE) [id number] Date(s): 03/04/17 - 03/05/17 [facility] [address] [employer] provided by [facility] [employer] [facility] [place] [address]- Discharge Diagnosis: Excessive vomiting in Discharge Disposition: Home or Self Care Attending Physician: Kit Johnson MD Vital Signs 1 2 3 Most recent to oldest [Reference Range]: 154.94 cm (03/04/17 8:40 PM) Height 97.8 DegF (03/05/17 4:00 AM) 97.1 DegF (03/05/17 12:00 AM) 97.4 DegF (03/04/17 11:44 PM) Temperature Oral [96.4-99.1 DegF] 110/68 mmHg (03/05/17 4:00 AM) 114/75 mmHg (03/05/17 12:00 AM) 112/78 mmHg (03/04/17 11:44 PM) Blood Pressure [90-140/60-90 mmHg] 18 BRMIN (03/05/17 4:00 AM) 18 BRMIN (03/05/17 12:00 AM) 18 BRMIN (03/04/17 11:44 PM) Respiratory Rate [14-20 BRMIN] 71 bpm (03/05/17 4:00 AM) 78 bpm (03/05/17 12:00 AM) 81 bpm (03/04/17 11:44 PM) Peripheral Pulse Rate [60-100 bpm] 68.182 kg (03/04/17 8:40 PM) Weight 28.4 m2 (03/04/17 8:40 PM) Body Mass Index Problem List No data available for this section Allergies, Adverse Reactions, Alerts Substance Reaction Severity Status NKDA Active Medications D5W in Lactated Ringers 1,000 mL 1,000 mL, Rate: 1,000 ml/hr, Infuse over: 1 hr, Route: IV, Dosing Weight 68.182 kg, Total Volume: 1,000, Start date: 03/05/17 2:59:00 CDT, Duration: 1 doses or times, Stop date: 03/05/17 3:58:00 CDT Start Date: 03/05/17 Stop Date: 03/05/17 Status: Completed Phenergan 12.5 mg, Route: IVPB, ONCE, Dosing Weight 68.182, kg, Priority: STAT, Start date : 03/05/17 0:06:00 CDT, Stop date: 03/05/17 0:06:00 CDT Start Date: 03/05/17 Stop Date: 03/05/17 Status: Completed promethazine 12.5 mg oral tablet 12.5 mg=1 tab, PO, Q6H, PRN Nausea & Vomiting, X 7 day, # 28 tab, 0 Refill(s) Start Date: 03/05/17 Stop Date: 03/12/17 Status: Ordered Sodium Chloride 0.9% (Bolus) IV 1,000 mL, Infuse Over: 1 hr, Route: IV, ONCE, Priority: STAT, Dosing Weight 68.1 82 kg, Start date: 03/05/17 0:06:00 CDT, Duration: 1 doses or times, Stop date: 03/05/17 0:06:00 CDT Start Date: 03/05/17 Stop Date: 03/05/17 Status: Completed Tylenol 650 mg, Route: PO, Drug form: TAB, ONCE, Dosing Weight 68.182, kg, Priority: STA T, Start date: 03/04/17 20:46:00 CDT, Stop date: 03/04/17 20:46:00 CDT Start Date: 03/04/17 Stop Date: 03/04/17 Status: Completed Vitamin B6 25 mg oral tablet 25 mg=1 tab, PO, Q6H, PRN Nausea & Vomiting, # 30 tab, 0 Refill(s) Start Date: 03/05/17 Stop Date: 03/12/17 Status: Ordered Results URINE CHEM Most recent to 1 2 oldest [Reference Range]: U Preg [Negative] Positive *ABN* (03/05/17 12:22 AM) URINE AND STOOL Most recent to 1 2 oldest [Reference Range]: UA Turbidity [Clear] Slight Cloudy Slight Cloudy (03/05/17 4:24 AM) (03/05/17 12:22 AM) UA Color [Yellow] Yellow Dark Yellow *NA* (03/05/17 12:22 AM) (03/05/17 4:24 AM) UA pH [5.0-8.0] 6.5 6.0 (03/05/17 4:24 AM) (03/05/17 12:22 AM) UA Spec Grav 1.015 1.031 [<=1.030] (03/05/17 4:24 AM) *HI* (03/05/17:22 AM) UA Glucose [Negative Negative mg/dL mg/dL] (03/05/17 4:24 AM) UA Glucose Negative [Negative] (03/05/17 12:22 AM) UA Blood [Negative] Negative Negative (03/05/17 4:24 AM) (03/05/17 12:22 AM) UA Ketones [Negative 15 mg/dL 40 mg/dL mg/dL] *ABN* *ABN* (03/05/17 4:24 AM) (03/05/17 12:22 AM) UA Protein [Negative Negative mg/dL mg/dL] (03/05/17 4:24 AM) UA Protein Trace [Negative] *ABN* (03/05/17 12:22 AM) UA Urobilinogen 1.0 EU/dL 0.2 EU/dL [0.1-1.0 EU/dL] (03/05/17 4:24 AM) (03/05/17 12:22 AM) UA Bili [Negative] Negative Small *NA* *ABN* (03/05/17 4:24 AM) (03/05/17 12:22 AM) UA Leuk Est Negative Negative [Negative] (03/05/17 4:24 AM) (03/05/17 12:22 AM) UA Nitrite Negative Negative [Negative] (03/05/17 4:24 AM) (03/05/17 12:22 AM) UA WBC [None Seen 0-2 /HPF 3-5 /HPF /HPF] (03/05/17 4:24 AM) (03/05/17 12:22 AM) UA RBC [0-2 /HPF] 0-2 /HPF 0-2 /HPF (03/05/17 4:24 AM) (03/05/17 12:22 AM) UA Bacteria [None Moderate /HPF Many /HPF Seen /HPF] (03/05/17 4:24 AM) (03/05/17 12:22 AM) UA Sq Epi [Few /LPF] Moderate /LPF Moderate /LPF *ABN* *ABN* (03/05/17 4:24 AM) (03/05/17 12:22 AM) UA Mucus [None Seen Moderate /LPF /LPF] *ABN* (03/05/17 12:22 AM) Micro? Not Indicated Performed (03/05/17 4:24 AM) (03/05/17 12:22 AM) Immunizations No data available for this [...]
--- OUTSIDE RECORDS SUMMARY | 2018-06-28 13:05 | XMS REPORT | Summary of Care ---
Author Author [facility] Organization [facility] Address Unknown Phone Unavailable Encounter CHARANJIT Chavez(GISSELLE) [id number] Date(s): 06/25/16 - 06/25/16 [facility] [address] [employer] provided by [facility] [employer] [facility] [employer] [place] [address]- Discharge Diagnosis: Vomiting and diarrhea Discharge Diagnosis: Abdominal pain in female Discharge Disposition: Home or Self Care Attending Physician: Sammie Dobson MD Vital Signs Most recent to 1 2 oldest [Reference Range]: Height 157.48 cm (06/25/16 8:39 AM) Temperature Oral 98.4 DegF 97.6 DegF [96.4-99.1 DegF] (06/25/16 10:31 AM) (06/25/16 8:39 AM) Blood Pressure 112/57 mmHg 120/80 mmHg [90-140/60-90 mmHg] (06/25/16 10:31 AM) (06/25/16 8:39 AM) Respiratory Rate 16 BRMIN 16 BRMIN [14-20 BRMIN] (06/25/16 10:31 AM) (06/25/16 8:39 AM) Peripheral Pulse 74 bpm 71 bpm Rate [60-100 bpm] (06/25/16 10:31 AM) (06/25/16 8:39 AM) Weight 75 kg (06/25/16 8:39 AM) Body Mass Index 30.24 m2 (06/25/16 8:39 AM) Problem List No data available for this section Allergies, Adverse Reactions, Alerts Substance Reaction Severity Status NKDA Active Medications Zofran ODT 4 mg, 1 tab, Route: PO, Drug form: TABDIS, ONCE, Dosing Weight 75, kg, Priority: STAT, Start date: 06/25/16 8:44:00 CDT, Stop date: 06/25/16 8:44:00 CDT Notes: (Same as: Zofran ODT) Start Date: 06/25/16 Stop Date: 06/25/16 Status: Completed Zofran ODT 4 mg oral tablet, disintegrating 4 mg=1 tab, PO, BID, PRN Nausea and Vomiting, Dissolve tab under tongue, X 5 day , # 10 tab, 0 Refill(s) Start Date: 06/25/16 Stop Date: 06/30/16 Status: Ordered Results ELECTROLYTES Most recent to 1 oldest [Reference Range]: Sodium Lvl [135-145 140 mEq/L mEq/L] (06/25/16 9:04 AM) Potassium Lvl 3.8 mEq/L [3.5-5.1 mEq/L] (06/25/16 9:04 AM) Chloride Lvl [95-109 104 mEq/L mEq/L] (06/25/16 9:04 AM) CO2 [24-32 mEq/L] 23 mEq/L *LOW* (06/25/16 9:04 AM) AGAP [10.0-20.0 16.8 mEq/L mEq/L] (06/25/16 9:04 AM) CHEM PANEL Most recent to 1 oldest [Reference Range]: Creatinine Lvl 0.86 mg/dL [0.50-1.40 mg/dL] (06/25/16 9:04 AM) eGFR 109 mL/min/1.73m2 1 *NA* (06/25/16 9:04 AM) BUN [7-22 mg/dL] 7 mg/dL (06/25/16 9:04 AM) B/C Ratio [6-25] 8 (06/25/16 9:04 AM) Glucose Lvl [70-99 117 mg/dL mg/dL] *HI* (06/25/16 9:04 AM) Total Protein 8.1 g/dL [6.4-8.4 g/dL] (06/25/16 9:04 AM) Albumin Lvl [3.5-5.0 4.0 g/dL g/dL] (06/25/16 9:04 AM) Globulin [2.7-4.2 4.1 g/dL g/dL] (06/25/16 9:04 AM) A/G Ratio [0.7-1.6] 1.0 (06/25/16 9:04 AM) Calcium Lvl 8.9 mg/dL [8.5-10.5 mg/dL] (06/25/16 9:04 AM) ALT [0-65 unit/L] 17 unit/L (06/25/16 9:04 AM) AST [0-37 unit/L] 15 unit/L (06/25/16 9:04 AM) Alk Phos [39-136 88 unit/L unit/L] (06/25/16 9:04 AM) Bili Total [0.2-1.3 0.6 mg/dL mg/dL] (06/25/16 9:04 AM) Lipase Lvl [73-393 213 unit/L unit/L] (06/25/16 9:04 AM) 1Result Comment: The eGFR is calculated using [...] oldest [Reference Range]: U Preg [Negative] Negative (06/25/16 9:04 AM) URINE AND STOOL Most recent to 1 oldest [Reference Range]: UA Turbidity [Clear] Clear (06/25/16 9:04 AM) UA Color [Yellow] Yellow *NA* (06/25/16 9:04 AM) UA pH [5.0-8.0] 8.0 (06/25/16 9:04 AM) UA Spec Grav 1.020 [<=1.030] (06/25/16 9:04 AM) UA Glucose [Negative Negative mg/dL mg/dL] (06/25/16 9:04 AM) UA Blood [Negative] Negative (06/25/16 9:04 AM) UA Ketones [Negative Negative mg/dL mg/dL] *NA* (06/25/16 9:04 AM) UA Protein [Negative Negative mg/dL mg/dL] (06/25/16 9:04 AM) UA Urobilinogen 0.2 EU/dL [0.1-1.0 EU/dL] (06/25/16 9:04 AM) UA Bili [Negative] Negative *NA* (06/25/16 9:04 AM) UA Leuk Est Negative [Negative] (06/25/16 9:04 AM) UA Nitrite Negative [Negative] (06/25/16 9:04 AM) UA WBC [None Seen] None Seen (06/25/16 9:04 AM) UA RBC [0-2] None Seen (06/25/16 9:04 AM) UA Bacteria [None None Seen Seen] (06/25/16 9:04 AM) UA Sq Epi [Few /LPF] Occasional /LPF (06/25/16 9:04 AM) Micro? Performed (06/25/16 9:04 AM) HEMATOLOGY Most recent to 1 oldest [Reference Range]: WBC [3.7-10.4 K/CMM] 14.2 K/CMM *HI* (06/25/16 9:04 AM) RBC [4.20-5.40 4.83 M/CMM M/CMM] (06/25/16 9:04 AM) Hgb [12.0-16.0 g/dL] 13.2 g/dL (06/25/16 9:04 AM) Hct [36.0-48.0 %] 39.8 % (06/25/16 9:04 AM) MCV [80.0-98.0 fL] 82.4 fL (06/25/16 9:04 AM) MCH [27.0-31.0 pg] 27.4 pg (06/25/16 9:04 AM) MCHC [32.0-36.0 33.3 g/dL g/dL] (06/25/16 9:04 AM) RDW [11.5-14.5 %] 12.8 % (06/25/16 9:04 AM) Platelet [133-450 137 K/CMM K/CMM] (06/25/16 9:04 AM) MPV [7.4-10.4 fL] 11.1 fL *HI* (06/25/16 9:04 AM) Segs [45.0-75.0 %] 91.4 % *HI* (06/25/16 9:04 AM) Lymphocytes 5.2 % [20.0-40.0 %] *LOW* (06/25/16 9:04 AM) Monocytes [2.0-12.0 3.1 % %] (06/25/16 9:04 AM) Eosinophils [0.0-4.0 0.1 % %] (06/25/16 9:04 AM) Basophils [0.0-1.0 0.2 % %] (06/25/16 9:04 AM) Segs-Bands # 13.0 K/CMM [1.5-8.1 K/CMM] *HI* (06/25/16 9:04 AM) Lymphocytes # 0.7 K/CMM [1.0-5.5 K/CMM] *LOW* (06/25/16 9:04 AM) Monocytes # [0.0-0.8 0.4 K/CMM K/CMM] (06/25/16 9:04 AM) Immunizations No data available for this [...]
--- OUTSIDE RECORDS SUMMARY | 2018-06-28 13:05 | XMS REPORT | Summary of Care ---
Author Author [facility] Organization [facility] Address Unknown Phone Unavailable Encounter CHARANJIT Chavez(GISSELLE) [id number] Date(s): 03/27/17 - 03/28/17 [facility] [address] [place] [address]- Discharge Disposition: Home or Self Care Attending Physician: Gerardo Gaytan MD Vital Signs 1 2 3 Most recent to oldest [Reference Range]: 154.94 cm (03/27/17 12:15 PM) 154.94 cm (03/27/17 2:49 AM) Height 98.4 DegF (03/28/17 2:10 PM) 98.5 DegF (03/28/17 11:33 AM) 97.9 DegF (03/28/17 6:57 AM) Temperature Oral [96.4-99.1 DegF] 104/65 mmHg (03/28/17 2:10 PM) 97/60 mmHg (03/28/17 11:33 AM) 104/66 mmHg (03/28/17 6:57 AM) Blood Pressure [90-140/60-90 mmHg] 16 BRMIN (03/28/17 2:10 PM) 18 BRMIN (03/28/17 11:33 AM) 16 BRMIN (03/28/17 6:57 AM) Respiratory Rate [14-20 BRMIN] 79 bpm (03/28/17 2:10 PM) 62 bpm (03/28/17 11:33 AM) 65 bpm (03/28/17 6:57 AM) Peripheral Pulse Rate [60-100 bpm] 70.455 kg (03/27/17 2:49 AM) Weight 29.35 m2 (03/27/17 2:49 AM) Body Mass Index Problem List No data available for this section Allergies, Adverse Reactions, Alerts Substance Reaction Severity Status NKDA Active Medications Ambien 5 mg, 1 tab, Route: PO, Drug form: TAB, Bedtime, Dosing Weight 70.455, kg, PRN I nsomnia, Start date: 03/27/17 11:08:00 CDT, Duration: 30 day, Stop date: 7 11:07:00 CDT Notes: (Same As: Ambien) Start Date: 03/27/17 Stop Date: 03/28/17 Status: Discontinued Ancef 2 gm, 50 mL, Route: IV, Drug form: INJ, ONCE, Dosing Weight 70.455, kg, Start da te: 03/27/17 11:08:00 CDT, Stop date: 03/27/17 11:08:00 CDT, ABX Indication: Kuldeep gical Prophylaxis Start Date: 03/27/17 Stop Date: 03/27/17 Status: Completed ANES acetaminophen 1,000 mg, Route: PO, Drug form: TAB, ONCE, Dosing Weight 70.455, kg, PRN Pain Sc ore 1-3, Start date: 03/27/17 18:41:00 CDT, Duration: 1 doses or times, Stop anca e: Limited # of times Start Date: 03/27/17 Stop Date: 03/27/17 Status: Discontinued ANES albuterol 0.083% inhalation solution 2.49 mg, Route: NEB, Q20Min, Dosing Weight 70.455, kg, PRN Wheezing, Priority: S TAT, Start date: 03/27/17 18:41:00 CDT, Duration: 30 day, Stop date: 04/26/17 18 :40:00 CDT Start Date: 03/27/17 Stop Date: 03/27/17 Status: Discontinued ANES fentaNYL 25 microgram, Route: IVP, Q5Min, Dosing Weight 70.455, kg, PRN Pain Score 4-6, P riority: Routine, Start date: 03/27/17 18:41:00 CDT, Duration: 4 doses or times, Stop date: Limited # of times Start Date: 03/27/17 Stop Date: 03/27/17 Status: Discontinued ANES flumazenil 0.2 mg, Route: IVP, PRN, Dosing Weight 70.455, kg, PRN Benzodiazepine Reversal, Initial dose, Start date: 03/27/17 18:41:00 CDT, Duration: 30 day, Stop date: 18:40:00 CDT Start Date: 03/27/17 Stop Date: 03/27/17 Status: Discontinued ANES hydrALAZINE 10 mg, Route: IVP, Q20Min, Dosing Weight 70.455, kg, PRN Elevated BP, Start date : 03/27/17 18:41:00 CDT, Duration: 2 doses or times, Stop date: Limited # of allie es Start Date: 03/27/17 Stop Date: 03/27/17 Status: Discontinued ANES ketOROLAC 30 mg, Route: IVP, ONCE, Dosing Weight 70.455, kg, Start date: 03/27/17 18:41:00 CDT, Duration: 1 doses or times, Stop date: 03/27/17 18:41:00 CDT Start Date: 03/27/17 Stop Date: 03/27/17 Status: Discontinued ANES labetalol 10 mg, Route: IVP, Q5Min, Dosing Weight 70.455, kg, PRN Elevated BP, Start date: 03/27/17 18:41:00 CDT, Duration: 5 doses or times, Stop date: Limited # of times Start Date: 03/27/17 Stop Date: 03/27/17 Status: Discontinued ANES meperidine 12.5 mg, Route: IVP, Q30Min, Dosing Weight 70.455, kg, PRN Other -See Comment, F or shivering, Start date: 03/27/17 18:41:00 CDT, Duration: 2 doses or times, Sto p date: Limited # of times Start Date: 03/27/17 Stop Date: 03/27/17 Status: Discontinued ANES morphine Sulfate 4 mg, Route: IVP, Q5Min, Dosing Weight 70.455, kg, PRN Pain Score 7-10, Start da te: 03/27/17 18:41:00 CDT, Duration: 3 doses or times, Stop date: Limited # of t imes Start Date: 03/27/17 Stop Date: 03/27/17 Status: Discontinued ANES naloxone 0.4 mg, Route: IVP, Q2MIN, Dosing Weight 70.455, kg, PRN Narcotic Reversal, Star t date: 03/27/17 18:41:00 CDT, Duration: 8 doses or times, Stop date: Limited # of times Start Date: 03/27/17 Stop Date: 03/27/17 Status: Discontinued ANES ondansetron 4 mg, Route: IVP, ONCE, Dosing Weight 70.455, kg, PRN Nausea & Vomiting, Start date: 03/27/17 18:41:00 CDT Start Date: 03/27/17 Stop Date: 03/27/17 Status: Discontinued ANES oxyCODONE 5 mg, Route: PO, Drug form: TAB, Q4H, Dosing Weight 70.455, kg, PRN Pain Score 4 -6, Start date: 03/27/17 18:41:00 CDT, Duration: 30 day, Stop date: 04/26/17 18: 40:00 CDT Start Date: 03/27/17 Stop Date: 03/27/17 Status: Discontinued ANES promethazine 6.25 mg, Route: IVPB, ONCE, Dosing Weight 70.455, kg, PRN Nausea & Vomiting, Start date: 03/27/17 18:41:00 CDT Start Date: 03/27/17 Stop Date: 03/27/17 Status: Discontinued ceFAZolin (ANES) Route: IV, Drug form: INJ, ONCE, Stop date: 03/27/17 18:51:00 CDT Start Date: 03/27/17 Stop Date: 03/27/17 Status: Completed fentaNYL (ANES) Route: IV, Drug form: INJ, ONCE, Stop date: 03/27/17 18:26:00 CDT Start Date: 03/27/17 Stop Date: 03/27/17 Status: Completed Ferralet 90 oral tablet 1 tab, PO, Daily, # 30 tab, 2 Refill(s) Start Date: 03/28/17 Status: Ordered glycopyrrolate (ANES) Route: IV, Drug form: INJ, ONCE, Stop date: 03/27/17 18:41:00 CDT Start Date: 03/27/17 Stop Date: 03/27/17 Status: Completed ibuprofen 400 mg oral tablet 400 mg, 1 tab, Route: PO, Drug form: TAB, Q4H, Dosing Weight 70.455, kg, PRN Juliet n Score 1-3, Start date: 03/27/17 18:13:00 CDT, Duration: 30 day, Stop date: 18:12:00 CDT Notes: (Same as: Motrin)"Do Not Crush" Give with food. Start Date: 03/27/17 Stop Date: 03/28/17 Status: Discontinued ibuprofen 800 mg oral tablet 800 mg=1 tab, PO, Q8H, PRN Fever or Pain, Take with food, X 10 day, # 30 tab, 0 Refill(s) Start Date: 03/28/17 Stop Date: 04/07/17 Status: Ordered lidocaine (ANES) Route: IV, Drug form: INJ, ONCE, Stop date: 03/27/17 18:46:00 CDT Start Date: 03/27/17 Stop Date: 03/27/17 Status: Completed LR 1000 mL INJ (ANES) Route: IV, Total Volume: 1,000, Start date: 03/27/17 17:33:00 CDT, Stop date: 18:33:00 CDT Start Date: 03/27/17 Stop Date: 03/27/17 Status: Completed midazolam (ANES) Route: IV, Drug form: SOLN, ONCE, Stop date: 03/27/17 17:21:00 CDT Start Date: 03/27/17 Stop Date: 03/27/17 Status: Completed morphine Sulfate 2 mg, 1 mL, Route: IVP, Drug form: INJ, Q2H, Dosing Weight 70.455, kg, PRN Pain Score 7-10, Start date: 03/27/17 18:13:00 CDT, Duration: 30 day, Stop date: 04/13 12/28 18:12:00 CDT Notes: (Same as:MORPhine Sulfate) Start Date: 03/27/17 Stop Date: 03/28/17 Status: Discontinued neostigmine (ANES) Route: IV, Drug form: INJ, ONCE, Stop date: 03/27/17 18:41:00 CDT Start Date: 03/27/17 Stop Date: 03/27/17 Status: Completed Salem 5/325 oral tablet 1 tab, Route: PO, Drug Form: TAB, Dosing Weight 70.455, kg, Q4H, PRN Pain Score 1-3, Start date: 03/27/17 13:45:00 CDT, Duration: 30 day, Stop date: 04/26/17 13 :44:00 CDT Notes: (Same as: Salem 325/5) Do not exceed 4gm/day of acetaminophen. Start Date: 03/27/17 Stop Date: 03/28/17 Status: Discontinued ondansetron (ANES) Route: IV, Drug form: INJ, ONCE, Stop date: 03/27/17 18:36:00 CDT Start Date: 03/27/17 Stop Date: 03/27/17 Status: Completed promethazine (ANES) Route: IV, Drug form: INJ, ONCE, Stop date: 03/27/17 18:46:00 CDT Start Date: 03/27/17 Stop Date: 03/27/17 Status: Completed propofol (ANES) Route: IV, Drug form: INJ, ONCE, Stop date: 03/27/17 18:31:00 CDT Start Date: 03/27/17 Stop Date: 03/27/17 Status: Completed Reglan 10 mg, 2 mL, Route: IVP, Drug form: INJ, Q6H, Dosing Weight 70.455, kg, PRN Naus ea & Vomiting, Start date: 03/27/17 18:13:00 CDT, Duration: 30 day, Stop date: 04/26/17 18:12:00 CDT Notes: (Same as: Reglan) Start Date: 03/27/17 Stop Date: 03/28/17 Status: Discontinued Reglan 5 mg oral tablet 5 mg=1 tab, PO, QID-Before Meals, PRN nausea and vomiting, X 10 day, # 40 tab, 0 Refill(s) Start Date: 03/28/17 Stop Date: 04/07/17 Status: Ordered rocuronium (ANES) Route: IV, Drug form: INJ, ONCE, Stop date: 03/27/17 18:31:00 CDT Start Date: 03/27/17 Stop Date: 03/27/17 Status: Completed sodium chloride 0.9% 1000 ml INJ 1,000 mL 1,000 mL, Rate: 125 ml/hr, Infuse over: 8 hr, Route: IV, Dosing Weight 70.455 kg , Total Volume: 1,000, Start date: 03/27/17 8:47:00 CDT, Duration: 30 day, Stop date: 04/26/17 8:46:00 CDT Start Date: 03/27/17 Stop Date: 03/28/17 Status: Discontinued succinylcholine (ANES) Route: IV, Drug form: INJ, ONCE, Stop date: 03/27/17 18:31:00 CDT Start Date: 03/27/17 Stop Date: 03/27/17 Status: Completed Tylenol 650 mg, 2 tab, Route: PO, Drug form: TAB, Q6H, Dosing Weight 70.455, kg, PRN Juliet n Score 1-3, Start date: 03/27/17 11:08:00 CDT, Duration: 30 day, Stop date: 11:07:00 CDT Notes: Do not exceed 4 gm/day. (Same as: Tylenol) Start Date: 03/27/17 Stop Date: 03/28/17 Status: Discontinued Ultram 50 mg oral tablet 1 - 2 tabs, PO, Q4-6H, PRN Pain Score 6-10, X 4 day, # 30 tab, 0 Refill(s) Start Date: 03/28/17 Stop Date: 04/01/17 Status: Ordered Ultram 50 mg oral tablet 50 mg, 1 tab, Route: PO, Drug form: TAB, Q6H, Dosing Weight 70.455, kg, PRN Pain Score 1-3, Start date: 03/27/17 18:13:00 CDT, Duration: 30 day, Stop date: 04/13 12/28 18:12:00 CDT Notes: Not to exceed 400mg/day. (Same As: Ultram) Start Date: 03/27/17 Stop Date: 03/28/17 Status: Discontinued Zofran 4 mg, 2 mL, Route: IVP, Drug form: INJ, Q8H, Dosing Weight 70.455, kg, PRN Nause a, Start date: 03/27/17 11:08:00 CDT, Duration: 30 day, Stop date: 04/26/17 11:0 7:00 CDT Notes: (Same as: Zofran) MEDICATION WASTE Product Size: 4 mgProduct Was blanquita: ___ mg Start Date: 03/27/17 Stop Date: 03/28/17 Status: Discontinued Results BLOOD BANK RESULTS Most recent to 1 2 oldest [Reference Range]: ABO/Rh B POS *Unknown* (03/27/17 3:51 AM) ELECTROLYTES Most recent to 1 2 oldest [Reference Range]: Sodium Lvl [135-145 139 mEq/L mEq/L] (03/27/17 3:51 AM) Potassium Lvl 3.9 mEq/L [3.5-5.1 mEq/L] (03/27/17 3:51 AM) Chloride Lvl [95-109 109 mEq/L mEq/L] (03/27/17 3:51 AM) CO2 [24-32 mEq/L] 22 mEq/L *LOW* (03/27/17 3:51 AM) AGAP [10.0-20.0 11.9 mEq/L mEq/L] (03/27/17 3:51 AM) CHEM PANEL Most recent to 1 2 oldest [Reference Range]: Creatinine Lvl 0.64 mg/dL [0.50-1.40 mg/dL] (03/27/17 3:51 AM) eGFR 144 mL/min/1.73m2 1 *NA* (03/27/17 3:51 AM) BUN [7-22 mg/dL] 6 mg/dL *LOW* (03/27/17 3:51 AM) B/C Ratio [6-25] 9 (03/27/17 3:51 AM) Glucose Lvl [70-99 83 mg/dL mg/dL] (03/27/17 3:51 AM) Total Protein 7.3 g/dL [6.4-8.4 g/dL] (03/27/17 3:51 AM) Albumin Lvl [3.5-5.0 3.5 g/dL g/dL] (03/27/17 3:51 AM) Globulin [2.7-4.2 3.8 g/dL g/dL] (03/27/17 3:51 AM) A/G Ratio [0.7-1.6] 0.9 (03/27/17 3:51 AM) Calcium Lvl 8.3 mg/dL [8.5-10.5 mg/dL] *LOW* (03/27/17 3:51 AM) ALT [0-65 unit/L] 13 unit/L (03/27/17 3:51 AM) AST [0-37 unit/L] 11 unit/L (03/27/17 3:51 AM) Alk Phos [39-136 58 unit/L unit/L] (03/27/17 3:51 AM) Bili Total [0.2-1.3 0.2 mg/dL mg/dL] (03/27/17 3:51 AM) 1Result Comment: The eGFR is calculated [...] estimated BMI. ENDOCRINOLOGY Most recent to 1 2 oldest [Reference Range]: hCG Tot 3058 mIU/mL *NA* (03/27/17 3:51 AM) URINE AND STOOL Most recent to 1 2 oldest [Reference Range]: UA Turbidity [Clear] Slight *ABN* (03/27/17 4:53 AM) UA Color [Yellow] Light Yellow *NA* (03/27/17 4:53 AM) UA pH [5.0-8.0] 5.0 (03/27/17 4:53 AM) UA Spec Grav 1.012 [<=1.030] (03/27/17 4:53 AM) UA Glucose [Negative Negative mg/dL mg/dL] *NA* (03/27/17 4:53 AM) UA Blood [Negative] Large *ABN* (03/27/17 4:53 AM) UA Ketones [Negative Trace mg/dL mg/dL] *ABN* (03/27/17 4:53 AM) UA Protein [Negative Negative mg/dL mg/dL] (03/27/17 4:53 AM) UA Urobilinogen <=1.0 mg/dL [0.1-1.0 mg/dL] *NA* (03/27/17 4:53 AM) UA Bili [Negative] Negative *NA* (03/27/17 4:53 AM) UA Leuk Est Negative [Negative] (03/27/17 4:53 AM) UA Nitrite Negative [Negative] (03/27/17 4:53 AM) UA WBC [0-5 /HPF] 1 /HPF (03/27/17 4:53 AM) UA RBC [0-2 /HPF] 1 /HPF (03/27/17 4:53 AM) UA Bacteria [None Occasional /HPF Seen /HPF] *NA* (03/27/17 4:53 AM) UA Sq Epi [Few /LPF] Few /LPF *NA* (03/27/17 4:53 AM) UA Hyal Cast [0-2 1 /LPF /LPF] (03/27/17 4:53 AM) UA Mucus [None Seen Few /LPF /LPF] *NA* (03/27/17 4:53 AM) HEMATOLOGY Most recent to 1 2 oldest [Reference Range]: WBC [3.7-10.4 K/CMM] 10.6 K/CMM *HI* (03/27/17 3:51 AM) RBC [4.20-5.40 4.06 M/CMM M/CMM] *LOW* (03/27/17 3:51 AM) Hgb [12.0-16.0 g/dL] 10.3 g/dL 11.8 g/dL *LOW* *LOW* (03/28/17 4:15 AM) (03/27/17 3:51 AM) Hct [36.0-48.0 %] 31.2 % 35.0 % *LOW* *LOW* (03/28/17 4:15 AM) (03/27/17 3:51 AM) MCV [80.0-98.0 fL] 86.3 fL (03/27/17 3:51 AM) MCH [27.0-31.0 pg] 29.0 pg (03/27/17 3:51 AM) MCHC [32.0-36.0 33.7 g/dL g/dL] (03/27/17 3:51 AM) RDW [11.5-14.5 %] 12.8 % (03/27/17 3:51 AM) Platelet [133-450 125 K/CMM K/CMM] *LOW* (03/27/17 3:51 AM) MPV [7.4-10.4 fL] 10.4 fL (03/27/17 3:51 AM) Segs [45.0-75.0 %] 57.9 % (03/27/17 3:51 AM) Lymphocytes 32.5 % [20.0-40.0 %] (03/27/17 3:51 AM) Monocytes [2.0-12.0 8.2 % %] (03/27/17 3:51 AM) Eosinophils [0.0-4.0 0.7 % %] (03/27/17 3:51 AM) Basophils [0.0-1.0 0.7 % %] (03/27/17 3:51 AM) Segs-Bands # 6.1 K/CMM [1.5-8.1 K/CMM] (03/27/17 3:51 AM) Lymphocytes # 3.4 K/CMM [1.0-5.5 K/CMM] (03/27/17 3:51 AM) Monocytes # [0.0-0.8 0.9 K/CMM K/CMM] *HI* (03/27/17 3:51 AM) Eosinophils # 0.1 K/CMM [0.0-0.5 K/CMM] (03/27/17 3:51 AM) Basophils # [0.0-0.2 0.1 K/CMM K/CMM] (03/27/17 3:51 AM) Immunizations No data available for this section Procedures Procedure Date Related Diagnosis Body Site Appendectomy section Social History Social History Type Response Smoking Status Never smoker; Type: Cigarettes; Previous treatment: None; Ready to change: No; Concerns about tobacco use in household: No; Exposure to Tobacco Smoke None; Cigarette Smoking Last 365 Days No; Reg Smoking Cessation Counseling No Assessment and Plan Extracted from: Title: Dilation and Curettage Author: Gerardo Gaytan MD Date: 03/27/17 Impression and Plan Diagnosis Missed ([id number] O02.1, Working, Medical). Course: The patient was moved to the OR where she was placed in lithotomy position using adjustable Yellofin stirrups. She was prepped and draped in the usual sterile fashion. She underwent general anesthesia, that was found to be adequate. The bladder was drained and a bivalve speculum was placed in the vagina. The anterior cervix was grasped using a single-tooth tenaculum and the uterus sounded to approximately 10 cm. The cervix was slightly dilated to approximately 0.5 cm in progress conception were ready coming out. Next, the cervix was dilated using Buffy dilators to 1-1/2 cm and suction curettage performed followed by a sharp curettage until a gritty texture was achieved in the endometrial cavity. The instruments were removed from the patient's vagina. 0.5 cm laceration created with a single-tooth tenaculum was repair with the use of 2-0 chromic suture in a running fashion. The patient tolerated the procedure well with no complications. Count was correct x 2. She was taken to recovery in stable condition. . Extracted from: Title: Progress Note * Author: Gerardo Gaytan MD Date: 03/27/17 Impression and Plan Diagnosis: Missed ([id number] O02.1, Working, Medical). Notified by nurse that patient started having abdominal pain and significant vaginal bleeding that started 2 hours prior. Will prepare patient for D&C today due to acute onset significant bleeding. Extracted from: Title: Gynecology generic Author: Gerardo Gaytan MD Date: 03/27/17 Impression and Plan Diagnosis Missed ([id number] O02.1, Working, Medical). Patient Instructions: Counseled: Patient, Discussed plan of care with patient, including medical management with cytotec orally VS expectant management, VS Dilation and Curettage. Risks and benefits of all options discussed, including risks associated with surgery, hemorrhage, infection, etc. Pt verbalized understanding., After extensive counseling the patient desires to discuss options with and get back to us. She is a good candidate for outpatient follow-up with her physician since she is not actively bleeding, not having abdominal pain, and she has no signs of infection..
== END | disposition left against medical advice (07) ==
LOC: ER 13:26
DX: M67.431 Ganglion, right wrist (principal)